=== PATIENT | female | born 1975 ===

== ENCOUNTER 2017-03-14 04:49 | Emergency (ER) | payer BC ==
[2017-03-14 05:15] VITALS: BP 156/100; PULSE 94; RESP 18; TEMP 98.2; O2SAT 100
[2017-03-14 06:21] LABS: BARBITURATES, UR NEGATIVE (NEGATIVE); BENZODIAZEPINES, UR NEGATIVE (NEGATIVE); OPIATES, UR NEGATIVE (NEGATIVE); PHENCYCLIDINE, UR NEGATIVE (NEGATIVE)
--- NOTE | 2017-03-14 06:23 | ED PDOC ---
HPI: Psych/Substance Abuse Time Seen by Provider: 03/14/17 05:11 Chief Complaint (Nursing): Psychiatric Evaluation Chief Complaint (Provider): Psychiatric Evaluation History Per: Patient, Family () History/Exam Limitations: no limitations Onset/Duration Of Symptoms: Days (x 2 months) Current Symptoms Are (Timing): Still Present Additional Complaint(s): 42 year old female brought to the emergency department by , for complaints of suicidal ideation for 2 months. She denies SI at this time. brought patient after she was found holding a knife to her chest. Patient did not cut or harm herself. Patient has been hearing voices telling her to like a pig. Denies any homicidal ideation. No history of similar symptoms or psychosis in the past. PMD: Provider TBD Past Medical History Reviewed: Historical Data, Nursing Documentation, Vital Signs Vital Signs: Last Vital Signs Temp 98.2 F 03/14/17 05:11 Pulse 94 H 03/14/17 05:11 Resp 18 03/14/17 05:11 BP 156/100 H 03/14/17 05:11 Pulse Ox 100 03/14/17 05:11 - Medical History PMH: No Chronic Diseases - Surgical History Surgical History: No Surg Hx - Family History Family History: States: Unknown Family Hx - Allergies Allergies/Adverse Reactions: Allergies Allergy/AdvReac Type Severity Reaction Status Date / Time No Known Allergies Allergy Verified 03/14/17 05:10 Review of Systems ROS Statement: Except As Marked, All Systems Reviewed And Found Negative Psych: Positive for: Suicidal ideation Physical Exam - Reviewed Nursing Documentation Reviewed: Yes Vital Signs Reviewed: Yes - Physical Exam Appears: Positive for: Non-toxic, No Acute Distress Head Exam: Positive for: ATRAUMATIC, NORMAL INSPECTION, NORMOCEPHALIC Skin: Positive for: Normal Color, Warm, Dry Eye Exam: Positive for: EOMI, Normal appearance, PERRL Neck: Positive for: Normal, Painless ROM Cardiovascular/Chest: Positive for: Regular Rate, Rhythm. Negative for: Murmur Respiratory: Positive for: Normal Breath Sounds. Negative for: Accessory Muscle Use, Respiratory Distress Gastrointestinal/Abdominal: Positive for: Normal Exam, Soft. Negative for: Tenderness Extremity: Positive for: Normal ROM. Negative for: Deformity Neurologic/Psych: Positive for: Alert, Oriented, Mood/Affect (calm and cooperative) - ECG O2 Sat by Pulse Oximetry: 100 (RA) Pulse Ox Interpretation: Normal Medical Decision Making Medical Decision Making: Initial Impression: Suicidal ideation, depression, possible psychosis Initial Plan: Crisis evaluation requested. Ordered UDS. Patient is cleared for discharge home as per Dr. Samano. Scribe Attestation: Documented by Mary Munguia, acting as a scribe for Star Burroughs MD Provider Scribe Attestation: All medical record entries made by the Scribe were at my direction and personally dictated by me. I have reviewed the chart and agree that the record accurately reflects my personal performance of the history, physical exam, medical decision making, and the department course for this patient. I have also personally directed, reviewed, and agree with the discharge instructions and disposition. Disposition - Clinical Impression Clinical Impression: Anxiety - Patient ED Disposition Is Patient to be Admitted: No Doctor Will See Patient In The: Office Counseled Patient/Family Regarding: Studies Performed, Diagnosis, Need For Followup - Disposition Referrals: [facility] [Outside] Disposition: Routine/Home Disposition Time: 06:30 Condition: GOOD Additional Instructions: Follow up with your PCP in 2-3 days. Instructions: Anxiety (ED)
== END 2017-03-14 06:59 | disposition home or self-care (01) ==
LOC: H.ER 04:49
DX: R45.851 Suicidal ideations (principal); F41.9 Anxiety disorder, unspecified; F32.9 Major depressive disorder, single episode, unspecified
CPT/HCPCS: 99283; G0480